=== PATIENT | female | born 1945 | race Caucasian/White ===

== ENCOUNTER 2018-01-05 10:44 | Inpatient (IN) | payer MEDICARE, OTHER ==
[~2018-01-05] VITALS: Ht 5451.6 cm; Wt 49.0 kg
[2018-01-05 11:34] LABS: BASOPHILS % (AUTO) 0.1 % (0-1); EOSINOPHILS # (AUTO) 0.1 X10'3 (0-0.9); EOSINOPHILS % (AUTO) 1.3 % (0-6); HEMATOCRIT 27.6 % (35.0-45.0); HEMOGLOBIN 9.4 g/dl (12.0-16.0); LYMPHOCYTES # (AUTO) 2.1 X10'3 (1.1-4.8); LYMPHOCYTES % (AUTO) 21.8 % (21-51); MEAN CORPUSCULAR HEMOGLOBIN 32.1 PG (27.0-31.0); MEAN CORPUSCULAR HGB CONC 34.2 % (33.0-36.5); MEAN CORPUSCULAR VOLUME 93.8 FL (78-98); MEAN PLATELET VOLUME 7.1 FL (7.4-10.4); MONOCYTES # (AUTO) 0.6 X10'3 (0-0.9); MONOCYTES % (AUTO) 5.9 % (2-12); NEUTROPHILS # (AUTO) 6.8 X10'3 (1.8-7.7); NEUTROPHILS % (AUTO) 70.9 % (42-75); PLATELET COUNT 202 X10'3 (140-440); RED BLOOD COUNT 2.94 X10'6 (4.20-5.60); RED CELL DISTRIBUTION WIDTH 12.1 % (11.5-14.5); WHITE BLOOD COUNT 9.6 X10'3 (4.5-11.0)
[2018-01-05 11:44] LABS: PARTIAL THROMBOPLASTIN TIME 23 SECONDS (22-32); PROTHROMBIN TIME 10.1 SECONDS (9.0-12.0)
[2018-01-05 11:49] LABS: ALANINE AMINOTRANSFERASE 21 U/L (12-78); ALBUMIN 3.3 G/DL (3.4-5.0); ALKALINE PHOSPHATASE 55 IU/L (46-116); ANION GAP 13 (8-16); ASPARTATE AMINO TRANSFERASE 17 U/L (10-37); BILIRUBIN,TOTAL 0.4 MG/DL (0.1-1.0); BLOOD UREA NITROGEN 62 MG/DL (7-18); BUN/CREATININE RATIO 11.3 (6.6-38.0); CALCIUM 8.5 MG/DL (8.5-10.1); CHLORIDE 98 MMOL/L (99-107); CREATININE 5.49 MG/DL (0.40-0.90); GLUCOSE 106 MG/DL (70-104); SODIUM 139 MMOL/L (135-145); TOTAL CARBON DIOXIDE 28.3 MMOL/L (24-32); TOTAL PROTEIN 6.7 G/DL (6.4-8.2); eGFR 8 ML/MIN
[2018-01-05] MEDS ORDERED: normal saline 1000ML IV soln IVB ONE (13:00)
[2018-01-05] MEDS ORDERED: mag hydrox/Alum hydrox/simeth 30ml oral suspension PO PRN (13:45)
[2018-01-05] MEDS ORDERED: ondansetron/PF 4mg/2ml inj IV PRN (13:45)
[2018-01-05] MEDS ORDERED: HYDROcodone/acetaminophen 5mg/325mg tablet PO PRN (13:45)
[2018-01-05] MEDS ORDERED: acetaminophen 325mg tablet PO PRN (13:45)
[2018-01-05] MEDS ORDERED: magnesium hydroxide 30ml (MOM) UD suspension PO PRN (13:45)
[2018-01-05] MEDS ORDERED: VENL-190 PO (14:05)
[2018-01-05] MEDS ORDERED: LORA0.5T PO (14:06)
[2018-01-05] MEDS ORDERED: TRAM50TA2 PO (14:08)
[2018-01-05] MEDS: normal saline 1000ml 1,000 ML IV SCH ×4 (14:45→22:45)
[2018-01-05] MEDS ORDERED: potassium chloride 8mEq ER tablet PO ONE (14:50)
[2018-01-05 16:34] LABS: CLARITY,URINE CLEAR (Clear); COLOR,URINE YELLOW (Yellow); GLUCOSE, URINE NEGATIVE (Neg); KETONES,URINE NEGATIVE (Neg); LEUKOCYTE ESTERASE ,URINE NEGATIVE (Neg); NITRITES, URINE NEGATIVE (Neg); OCCULT BLOOD,URINE TRACE-INTACT (Neg); PROTEIN,URINE 30 mg/dl (Neg); UROBILINOGEN,URINE 0.2 E.U/dL (0.2-1.0)
[2018-01-05 16:40] LABS: BACTERIA,URINE NONE SEEN /HPF (Neg); RBC,URINE 0-2 /HPF (0-2); UA COLLECTION TYPE CLN CATCH MIDSTREAM; WBC,URINE 0-4 /HPF (0-4)
[2018-01-05 16:41] LABS: SQUAMOUS EPITHELIAL CELL,UR FEW /LPF (FEW)
[2018-01-05] MEDS: traMADol 50MG tablet PO SCH (20:00)
[2018-01-05] MEDS ORDERED: heparin, porcine 5000 units/ml vial SQ SCH (20:00)
[2018-01-05] MEDS: docusate sod 100mg capsule PO SCH (20:00)
[2018-01-05] MEDS: LORazepam 0.5 MG tablet PO SCH (20:45)
[2018-01-06] VITALS (14 sets, daily range): BP systolic 117–150; BP diastolic 58–84
[2018-01-06] MEDS: normal saline 1000ml 1,000 ML IV SCH ×3 (01:06→07:00)
[2018-01-06] MEDS: traMADol 50MG tablet PO SCH ×4 (02:35→20:20)
[2018-01-06 07:14] LABS: BASOPHILS % (AUTO) 0.1 % (0-1); EOSINOPHILS % (AUTO) 0.5 % (0-6); HEMOGLOBIN 7.6 g/dl (12.0-16.0); LYMPHOCYTES # (AUTO) 2.1 X10'3 (1.1-4.8); LYMPHOCYTES % (AUTO) 45.7 % (21-51); MEAN CORPUSCULAR HEMOGLOBIN 32.4 PG (27.0-31.0); MEAN CORPUSCULAR HGB CONC 34.8 % (33.0-36.5); MEAN CORPUSCULAR VOLUME 93.2 FL (78-98); MEAN PLATELET VOLUME 6.4 FL (7.4-10.4); MONOCYTES # (AUTO) 0.3 X10'3 (0-0.9); NEUTROPHILS # (AUTO) 2.1 X10'3 (1.8-7.7); NEUTROPHILS % (AUTO) 46.7 % (42-75); PLATELET COUNT 153 X10'3 (140-440); RED BLOOD COUNT 2.35 X10'6 (4.20-5.60); RED CELL DISTRIBUTION WIDTH 12.5 % (11.5-14.5); WHITE BLOOD COUNT 4.6 X10'3 (4.5-11.0)
[2018-01-06 07:18] LABS: HEMATOCRIT 21.9 % (35.0-45.0)
[2018-01-06 07:36] LABS: ALANINE AMINOTRANSFERASE 16 U/L (12-78); ALBUMIN 2.7 G/DL (3.4-5.0); ALKALINE PHOSPHATASE 41 IU/L (46-116); ANION GAP 12 (8-16); ASPARTATE AMINO TRANSFERASE 12 U/L (10-37); BILIRUBIN,TOTAL 0.4 MG/DL (0.1-1.0); BLOOD UREA NITROGEN 57 MG/DL (7-18); BUN/CREATININE RATIO 12.1 (6.6-38.0); CALCIUM 7.6 MG/DL (8.5-10.1); CHLORIDE 107 MMOL/L (99-107); CREATININE 4.73 MG/DL (0.40-0.90); GLUCOSE 87 MG/DL (70-104); POTASSIUM 3.2 MMOL/L (3.5-5.1); SODIUM 144 MMOL/L (135-145); TOTAL CARBON DIOXIDE 24.7 MMOL/L (24-32); TOTAL PROTEIN 5.4 G/DL (6.4-8.2); eGFR 9 ML/MIN
[2018-01-06] MEDS: docusate sod 100mg capsule PO SCH ×2 (08:06→20:19)
[2018-01-06] MEDS: venlafaxine XR 75mg capsule (Q24H) PO SCH (08:06)
[2018-01-06] MEDS: pantoprazole 40MG/NS 100ML BAG 100 ML IV SCH ×4 (08:20→20:20)
[2018-01-06 10:18] LABS: HEMATOCRIT 22.2 % (35.0-45.0); HEMOGLOBIN 7.7 g/dl (12.0-16.0); MEAN CORPUSCULAR HEMOGLOBIN 32.5 PG (27.0-31.0); MEAN CORPUSCULAR HGB CONC 34.6 % (33.0-36.5); MEAN CORPUSCULAR VOLUME 93.9 FL (78-98); PLATELET COUNT 138 X10'3 (140-440); RED BLOOD COUNT 2.36 X10'6 (4.20-5.60); RED CELL DISTRIBUTION WIDTH 12.7 % (11.5-14.5); WHITE BLOOD COUNT 4.8 X10'3 (4.5-11.0)
[2018-01-06 10:44] LABS: FERRITIN 295 NG/ML (8-252)
[2018-01-06 11:36] LABS: % IRON SATURATION 66 % (11-46); IRON 121 UG/DL (49-151); TOTAL IRON BINDING CAPACITY 182 UG/DL (259-388)
[2018-01-06 12:19] LABS: OCCULT BLOOD STOOL NEGATIVE (Neg)
[2018-01-06 13:01] LABS: HEMOGLOBIN 9.7 g/dl (12.0-16.0); MEAN CORPUSCULAR HEMOGLOBIN 31.3 PG (27.0-31.0); MEAN CORPUSCULAR HGB CONC 34.6 % (33.0-36.5); MEAN CORPUSCULAR VOLUME 90.6 FL (78-98); MEAN PLATELET VOLUME 6.9 FL (7.4-10.4); PLATELET COUNT 152 X10'3 (140-440); RED BLOOD COUNT 3.09 X10'6 (4.20-5.60); RED CELL DISTRIBUTION WIDTH 13.7 % (11.5-14.5); WHITE BLOOD COUNT 4.8 X10'3 (4.5-11.0)
[2018-01-06] MEDS ORDERED: polyethylene glycol 3350 17gm powd pack PO PRN (18:35)
[2018-01-06] MEDS ORDERED: potassium Cl 20 mEq SR tablet PO PRN (19:00)
[2018-01-06] MEDS ORDERED: potassium Cl 40MEQ/NS 500ml 500 ML IV PRN ×2 (19:00)
[2018-01-06 20:00] LABS: HEMATOCRIT 28.8 % (35.0-45.0); HEMOGLOBIN 9.7 g/dl (12.0-16.0); MEAN CORPUSCULAR HEMOGLOBIN 30.9 PG (27.0-31.0); MEAN CORPUSCULAR HGB CONC 33.8 % (33.0-36.5); MEAN CORPUSCULAR VOLUME 91.5 FL (78-98); MEAN PLATELET VOLUME 6.9 FL (7.4-10.4); PLATELET COUNT 140 X10'3 (140-440); RED BLOOD COUNT 3.15 X10'6 (4.20-5.60); RED CELL DISTRIBUTION WIDTH 14.9 % (11.5-14.5); WHITE BLOOD COUNT 5.6 X10'3 (4.5-11.0)
[2018-01-06] MEDS: LORazepam 0.5 MG tablet PO SCH (20:20)
[2018-01-06] MEDS: potassium Cl 20 mEq SR tablet PO PRN (20:21)
[2018-01-07] VITALS (8 sets, daily range): BP systolic 0–149; BP diastolic 55–104
[2018-01-07] MEDS: pantoprazole 40MG/NS 100ML BAG 100 ML IV SCH ×3 (00:36→10:29)
[2018-01-07] MEDS: traMADol 50MG tablet PO SCH ×4 (02:27→20:30)
[2018-01-07] MEDS: potassium Cl 20 mEq SR tablet PO PRN (04:19)
[2018-01-07 05:44] LABS: BASOPHILS % (AUTO) 0.2 % (0-1); EOSINOPHILS % (AUTO) 0.5 % (0-6); HEMATOCRIT 27.7 % (35.0-45.0); HEMOGLOBIN 9.8 g/dl (12.0-16.0); LYMPHOCYTES # (AUTO) 2.2 X10'3 (1.1-4.8); LYMPHOCYTES % (AUTO) 41.4 % (21-51); MEAN CORPUSCULAR HEMOGLOBIN 31.9 PG (27.0-31.0); MEAN CORPUSCULAR HGB CONC 35.2 % (33.0-36.5); MEAN CORPUSCULAR VOLUME 90.6 FL (78-98); MONOCYTES # (AUTO) 0.4 X10'3 (0-0.9); MONOCYTES % (AUTO) 8.1 % (2-12); NEUTROPHILS # (AUTO) 2.7 X10'3 (1.8-7.7); NEUTROPHILS % (AUTO) 49.8 % (42-75); PLATELET COUNT 138 X10'3 (140-440); RED BLOOD COUNT 3.06 X10'6 (4.20-5.60); RED CELL DISTRIBUTION WIDTH 14.8 % (11.5-14.5); WHITE BLOOD COUNT 5.4 X10'3 (4.5-11.0)
[2018-01-07 06:08] LABS: ALANINE AMINOTRANSFERASE 16 U/L (12-78); ALBUMIN 2.7 G/DL (3.4-5.0); ALKALINE PHOSPHATASE 44 IU/L (46-116); ANION GAP 9 (8-16); ASPARTATE AMINO TRANSFERASE 14 U/L (10-37); BILIRUBIN,TOTAL 0.5 MG/DL (0.1-1.0); BLOOD UREA NITROGEN 45 MG/DL (7-18); BUN/CREATININE RATIO 10.3 (6.6-38.0); CHLORIDE 108 MMOL/L (99-107); CREATININE 4.36 MG/DL (0.40-0.90); GLUCOSE 88 MG/DL (70-104); MAGNESIUM 1.6 MG/DL (1.5-2.4); POTASSIUM 3.5 MMOL/L (3.5-5.1); SODIUM 142 MMOL/L (135-145); TOTAL CARBON DIOXIDE 25.2 MMOL/L (24-32); TOTAL PROTEIN 5.5 G/DL (6.4-8.2); eGFR 10 ML/MIN
[2018-01-07] MEDS: docusate sod 100mg capsule PO SCH ×2 (07:14→20:30)
[2018-01-07] MEDS: venlafaxine XR 75mg capsule (Q24H) PO SCH (07:15)
[2018-01-07] MEDS: potassium cl 20mEq in 1/2 NS 1,000 ML IV SCH ×2 (13:43→23:13)
[2018-01-07] MEDS: LORazepam 0.5 MG tablet PO SCH (20:30)
[2018-01-08] VITALS (8 sets, daily range): BP systolic 76–159; BP diastolic 41–81
[2018-01-08] MEDS: traMADol 50MG tablet PO SCH ×4 (01:25→19:51)
[2018-01-08 06:16] LABS: BASOPHILS % (AUTO) 0.1 % (0-1); EOSINOPHILS % (AUTO) 0.8 % (0-6); HEMATOCRIT 28.8 % (35.0-45.0); LYMPHOCYTES # (AUTO) 2.6 X10'3 (1.1-4.8); LYMPHOCYTES % (AUTO) 45.9 % (21-51); MEAN CORPUSCULAR HEMOGLOBIN 31.5 PG (27.0-31.0); MEAN CORPUSCULAR HGB CONC 34.7 % (33.0-36.5); MEAN PLATELET VOLUME 7.4 FL (7.4-10.4); MONOCYTES # (AUTO) 0.4 X10'3 (0-0.9); NEUTROPHILS # (AUTO) 2.5 X10'3 (1.8-7.7); NEUTROPHILS % (AUTO) 45.2 % (42-75); PLATELET COUNT 149 X10'3 (140-440); RED BLOOD COUNT 3.17 X10'6 (4.20-5.60); RED CELL DISTRIBUTION WIDTH 14.7 % (11.5-14.5); WHITE BLOOD COUNT 5.6 X10'3 (4.5-11.0)
[2018-01-08 06:32] LABS: ALANINE AMINOTRANSFERASE 17 U/L (12-78); ALBUMIN 2.9 G/DL (3.4-5.0); ALKALINE PHOSPHATASE 55 IU/L (46-116); ANION GAP 7 (8-16); ASPARTATE AMINO TRANSFERASE 13 U/L (10-37); BILIRUBIN,TOTAL 0.5 MG/DL (0.1-1.0); BLOOD UREA NITROGEN 42 MG/DL (7-18); BUN/CREATININE RATIO 10.2 (6.6-38.0); CALCIUM 8.2 MG/DL (8.5-10.1); CHLORIDE 108 MMOL/L (99-107); CREATININE 4.11 MG/DL (0.40-0.90); GLUCOSE 83 MG/DL (70-104); MAGNESIUM 1.6 MG/DL (1.5-2.4); POTASSIUM 4.4 MMOL/L (3.5-5.1); SODIUM 141 MMOL/L (135-145); TOTAL CARBON DIOXIDE 25.6 MMOL/L (24-32); TOTAL PROTEIN 5.9 G/DL (6.4-8.2); eGFR 11 ML/MIN
[2018-01-08] MEDS: docusate sod 100mg capsule PO SCH ×2 (07:42→19:51)
[2018-01-08] MEDS: venlafaxine XR 75mg capsule (Q24H) PO SCH (07:42)
[2018-01-08] MEDS: potassium cl 20mEq in 1/2 NS 1,000 ML IV SCH (09:05)
[2018-01-08] MEDS: normal saline 1000ml 1,000 ML IV SCH ×2 (17:15→19:46)
[2018-01-08] MEDS: LORazepam 0.5 MG tablet PO SCH (19:51)
[2018-01-09] VITALS (10 sets, daily range): BP systolic 89–149; BP diastolic 48–81
[2018-01-09] MEDS: traMADol 50MG tablet PO SCH ×4 (02:15→20:46)
[2018-01-09 06:08] LABS: BASOPHILS % (AUTO) 0.1 % (0-1); EOSINOPHILS % (AUTO) 0.5 % (0-6); HEMATOCRIT 26.2 % (35.0-45.0); HEMOGLOBIN 9.1 g/dl (12.0-16.0); LYMPHOCYTES # (AUTO) 2.4 X10'3 (1.1-4.8); LYMPHOCYTES % (AUTO) 45.4 % (21-51); MEAN CORPUSCULAR HEMOGLOBIN 31.7 PG (27.0-31.0); MEAN CORPUSCULAR HGB CONC 34.7 % (33.0-36.5); MEAN CORPUSCULAR VOLUME 91.4 FL (78-98); MEAN PLATELET VOLUME 7.6 FL (7.4-10.4); MONOCYTES # (AUTO) 0.5 X10'3 (0-0.9); NEUTROPHILS # (AUTO) 2.4 X10'3 (1.8-7.7); PLATELET COUNT 138 X10'3 (140-440); RED BLOOD COUNT 2.86 X10'6 (4.20-5.60); RED CELL DISTRIBUTION WIDTH 14.5 % (11.5-14.5); WHITE BLOOD COUNT 5.2 X10'3 (4.5-11.0)
[2018-01-09 06:26] LABS: ALANINE AMINOTRANSFERASE 15 U/L (12-78); ALBUMIN 2.6 G/DL (3.4-5.0); ALBUMIN/GLOBULIN RATIO 0.9 (1.1-1.5); ALKALINE PHOSPHATASE 50 IU/L (46-116); ANION GAP 8 (8-16); ASPARTATE AMINO TRANSFERASE 14 U/L (10-37); BILIRUBIN,TOTAL 0.3 MG/DL (0.1-1.0); BLOOD UREA NITROGEN 40 MG/DL (7-18); BUN/CREATININE RATIO 9.6 (6.6-38.0); CALCIUM 8.1 MG/DL (8.5-10.1); CHLORIDE 109 MMOL/L (99-107); CREATININE 4.16 MG/DL (0.40-0.90); GLUCOSE 104 MG/DL (70-104); MAGNESIUM 1.5 MG/DL (1.5-2.4); POTASSIUM 3.8 MMOL/L (3.5-5.1); SODIUM 143 MMOL/L (135-145); TOTAL CARBON DIOXIDE 25.7 MMOL/L (24-32); TOTAL PROTEIN 5.4 G/DL (6.4-8.2); eGFR 10 ML/MIN
[2018-01-09] MEDS: docusate sod 100mg capsule PO SCH ×2 (07:41→20:46)
[2018-01-09] MEDS: venlafaxine XR 75mg capsule (Q24H) PO SCH (07:42)
[2018-01-09] MEDS ORDERED: NORMAL SALINE IV SCH (15:50)
[2018-01-09] MEDS ORDERED: POTASSIUM CL IV SCH (15:50)
[2018-01-09] MEDS: LORazepam 0.5 MG tablet PO SCH (20:46)
[2018-01-09] MEDS: normal saline 1000ml 1,000 ML IV SCH (21:51)
[2018-01-10] VITALS (14 sets, daily range): BP systolic 83–179; BP diastolic 56–96
[2018-01-10] MEDS: traMADol 50MG tablet PO SCH ×3 (01:57→13:33)
[2018-01-10 05:10] LABS: BASOPHILS % (AUTO) 0.1 % (0-1); EOSINOPHILS % (AUTO) 0 % (0-6); HEMATOCRIT 27.1 % (35.0-45.0); HEMOGLOBIN 9.3 g/dl (12.0-16.0); LYMPHOCYTES # (AUTO) 1.9 X10'3 (1.1-4.8); LYMPHOCYTES % (AUTO) 35.4 % (21-51); MEAN CORPUSCULAR HEMOGLOBIN 31.1 PG (27.0-31.0); MEAN CORPUSCULAR HGB CONC 34.5 % (33.0-36.5); MEAN CORPUSCULAR VOLUME 90.4 FL (78-98); MEAN PLATELET VOLUME 7.3 FL (7.4-10.4); MONOCYTES # (AUTO) 0.5 X10'3 (0-0.9); MONOCYTES % (AUTO) 8.6 % (2-12); NEUTROPHILS # (AUTO) 3.1 X10'3 (1.8-7.7); NEUTROPHILS % (AUTO) 55.9 % (42-75); PLATELET COUNT 147 X10'3 (140-440); RED BLOOD COUNT 2.99 X10'6 (4.20-5.60); RED CELL DISTRIBUTION WIDTH 14.1 % (11.5-14.5); WHITE BLOOD COUNT 5.5 X10'3 (4.5-11.0)
[2018-01-10] MEDS: normal saline 1000ml 1,000 ML IV SCH (05:22)
[2018-01-10 05:35] LABS: ALANINE AMINOTRANSFERASE 17 U/L (12-78); ALBUMIN 2.7 G/DL (3.4-5.0); ALKALINE PHOSPHATASE 49 IU/L (46-116); ANION GAP 9 (8-16); ASPARTATE AMINO TRANSFERASE 15 U/L (10-37); BILIRUBIN,TOTAL 0.4 MG/DL (0.1-1.0); BLOOD UREA NITROGEN 39 MG/DL (7-18); BUN/CREATININE RATIO 9.6 (6.6-38.0); CALCIUM 7.8 MG/DL (8.5-10.1); CHLORIDE 109 MMOL/L (99-107); CREATININE 4.05 MG/DL (0.40-0.90); GLUCOSE 87 MG/DL (70-104); MAGNESIUM 1.4 MG/DL (1.5-2.4); POTASSIUM 4.4 MMOL/L (3.5-5.1); SODIUM 143 MMOL/L (135-145); TOTAL CARBON DIOXIDE 24.9 MMOL/L (24-32); TOTAL PROTEIN 5.5 G/DL (6.4-8.2); eGFR 11 ML/MIN
[2018-01-10] MEDS: venlafaxine XR 75mg capsule (Q24H) PO SCH (07:48)
[2018-01-10] MEDS: docusate sod 100mg capsule PO SCH (07:49)
[2018-01-10] MEDS ORDERED: COL100C PO (11:31)
== END 2018-01-10 15:34 | disposition home health service (06) | DRG 683 ==
LOC: ER 10:45 → ED HOLD 13:45 → PCU 3S 01-06 15:05
PROVIDERS: ADMIT Internal Medicine; ATTEND Internal Medicine
PROC: 30233N1 Transfusion of Nonautologous Red Blood Cells into Peripheral Vein, Percutaneous Approach (ICD-10-PCS; principal; 2018-01-06)
DX: I12.9 Hypertensive chronic kidney disease with stage 1 through stage 4 chronic kidney disease, or unspecified chronic kidney disease (principal); N17.9 Acute kidney failure, unspecified; E86.0 Dehydration; D63.1 Anemia in chronic kidney disease; E87.6 Hypokalemia; S00.03XA Contusion of scalp, initial encounter; I95.1 Orthostatic hypotension; N18.3 Chronic kidney disease, stage 3 (moderate); W01.198A Fall on same level from slipping, tripping and stumbling with subsequent striking against other object, initial encounter; E86.9 Volume depletion, unspecified; R91.1 Solitary pulmonary nodule; F32.9 Major depressive disorder, single episode, unspecified; M50.323 Other cervical disc degeneration at C6-C7 level; Z87.891 Personal history of nicotine dependence; Y93.89 Activity, other specified; Y92.89 Other specified places as the place of occurrence of the external cause; Y99.8 Other external cause status; Z79.899 Other long term (current) drug therapy
CPT/HCPCS: 36415; 70450; 71045; 72125; 72141; 76775; 80053; 81001; 82272; 82728; 83540; 83550; 83735; 84484; 85025; 85027; 85610; 85730; 86885; 86900; 86901; 86920; 87070; 93005; 93306; 93660; 93880; 96360; 99285; C1894; C9113; J1644; J3480; J7030; P9016